=== PATIENT | female | born 1940 | race Caucasian/White ===

== ENCOUNTER 2016-03-12 11:59 | Outpatient (CLI) | payer MEDICARE | END 2016-03-12 12:00 | disposition home or self-care (01) | DX: J44.9 Chronic obstructive pulmonary disease, unspecified (principal) ==

== ENCOUNTER 2016-04-01 09:14 | Outpatient (CLI) | payer MEDICARE ==
[2016-04-01] MEDS ORDERED: ALBUTEROL NEB 2.5 MG/3 ML INH ONE (09:40)
== END 2016-04-01 09:15 | disposition home or self-care (01) ==
DX: R06.00 Dyspnea, unspecified (principal)
CPT/HCPCS: 94060; 94664; J7613

== ENCOUNTER 2016-04-20 12:15 | Outpatient (CLI) | payer MEDICARE | END 2016-04-20 12:16 | disposition home or self-care (01) | DX: R10.9 Unspecified abdominal pain (principal) ==

== ENCOUNTER 2017-06-17 15:49 | Outpatient (CLI) | payer MEDICARE ==
--- NOTE | 2017-06-18 13:53 | Mammography Report ---
DIGITAL SCREENING MAMMOGRAM: 06/17/2017 INDICATION: A 76-year-old for screening. COMPARISON: 10/2015, 09/2013, 11/2011, 03/2010, 03/2009. TECHNIQUE: Routine CC and MLO projections were obtained of the breasts. FINDINGS: The breasts demonstrate fatty replacement bilaterally. Punctate, typically benign calcifications are present. No suspicious masses, clustered microcalcifications, or regions of architectural distortion are identified. IMPRESSION: BENIGN FINDINGS. RECOMMENDATION: Routine annual screening unless otherwise clinically indicated. BIRADS CATEGORY 2 BENIGN FINDINGS. STANDARD QUALIFYING STATEMENTS: 1. This examination was reviewed with the aid of Computer-Aided Detection (CAD). 2. A negative or benign imaging report should not delay biopsy if clinically suspicious findings are present. Consider surgical consultation if warranted. More than 5% of cancers are not identified by imaging. 3. Dense breasts may obscure an underlying neoplasm. TD: 06/18/2017 13:52
== END 2017-06-17 15:50 | disposition home or self-care (01) ==
LOC: DI 15:49
PROVIDERS: ATTEND Internal Medicine
DX: Z12.31 Encounter for screening mammogram for malignant neoplasm of breast (principal)
CPT/HCPCS: 77067

== ENCOUNTER 2017-07-05 12:12 | Outpatient (CLI) | payer MEDICARE ==
--- NOTE | 2017-07-05 13:06 | XRAY Report ---
TWO VIEW CHEST: 07/05/2017 CLINICAL INDICATION: Dyspnea. COMPARISON: 03/12/2016 FINDINGS: Frontal and lateral views of the chest demonstrate a normal cardiac silhouette. The lungs remain hyperinflated, compatible with COPD. No focal consolidation, effusion, or pneumothorax is present. IMPRESSION: STABLE HYPERINFLATION. NO EVIDENCE OF ACUTE CARDIOPULMONARY DISEASE. TD: 07/05/2017 13:05
== END 2017-07-05 12:13 | disposition home or self-care (01) ==
LOC: DI 12:12
PROVIDERS: ATTEND Internal Medicine
DX: R91.8 Other nonspecific abnormal finding of lung field (principal)
CPT/HCPCS: 71046

== ENCOUNTER 2017-08-11 09:30 | Emergency (ER) | payer MEDICARE ==
[2017-08-11 12:34] VITALS: BP 187/54
[2017-08-11 12:44] LABS: BASOPHILS % (AUTO) 0.2 %; EOSINOPHILS % (AUTO) 0.1 %; HGB - HEMOGLOBIN 12.5 g/dL (12.0-16.0); LYMPHOCYTES % (AUTO) 10.2 %; MEAN CORPUSCULAR HEMOGLOBIN 30.2 pg (27.0-31.0); MEAN CORPUSCULAR HGB CONC 33.5 g/dL (32.0-36.0); MEAN PLATELET VOLUME 7.9 fL (7.9-10.8); MONOCYTES # (AUTO) 0.4 10^3/uL (0.0-1.0); MONOCYTES % (AUTO) 3.9 %; NEUTROPHILS % (AUTO) 85.6 %; PLT - PLATELET COUNT 220 10^3/uL (130-450); RED BLOOD COUNT 4.13 10^6/uL (4.20-5.40); RED CELL DISTRIBUTION WIDTH 14.1 % (12.0-15.0); WHITE BLOOD COUNT 9.4 x10^3/uL (4.8-10.8)
[2017-08-11 12:57] LABS: ALBUMIN 4.4 g/dL (3.2-5.5); ALBUMIN/GLOBULIN RATIO 1.1 (1.0-2.2); BILIRUBIN,TOTAL 0.6 mg/dL (0.2-1.0); CALCIUM 9.6 mg/dL (8.5-10.3); CREATININE 1.2 mg/dL (0.4-1.0); MAGNESIUM 1.8 mg/dL (1.7-2.8); TOTAL PROTEIN 8.3 g/dL (6.7-8.2)
[2017-08-11] MEDS ORDERED: DEXAMETHASONE 10 MG/ML VIAL PO STA (13:22)
--- NOTE | 2017-08-11 13:24 | ED Physician Documentation ---
PD HPI DYSPNEA - Stated complaint Stated Complaint: PANICK ATTACK - Chief complaint Chief Complaint: General - History obtained from History obtained from: Patient - History of Present Illness Timing - onset: How many days ago (has had several days of intermittent dyspnea. One epsidoe few days ago felt like she was going to faint. However most of them are feeling short of breath. Not exertional based. Feels tight in chest with it. Has had dx of COPD and has budesonide inhaler. Albuterol MDI for "rescue" but was not trying it for these. No chest pain with it. No dx of ACS/ CHF in the past.) Timing - onset during: Rest, Light activity Timing - duration: Hours Timing - details: Intermittant Inciting event(s): No: URI, Exercise, Exposure (ie smoke), Immobilization/travel Improved by: Rest Worsened by: No: Laying flat Associated symptoms: Wheezing, Anxiety. No: Fever, Cough, Chest pain / discomfort, Palpitations, Bilateral edema Similar symptoms before: Has not had sx before Recently seen: Clinic (Dx with possible COPD) Review of Systems Ten Systems: 10 systems reviewed and negative Constitutional: denies: Fever, Chills, Myalgias Nose: denies: Rhinorrhea / runny nose, Congestion Throat: denies: Sore throat Cardiac: denies: Chest pain / pressure, Palpitations, Pedal edema, Calf pain Respiratory: reports: Dyspnea. denies: Cough, Hemoptysis GI: denies: Abdominal Pain, Nausea, Vomiting : denies: Dysuria, Frequency Skin: denies: Rash, Lesions Musculoskeletal: denies: Extremity swelling Neurologic: reports: Generalized weakness, Near syncope (one episode). 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 HEENT: Cataracts - Present Medications Home Medications: Ambulatory Orders Medication Instructions Recorded Confirmed Lisinopril 10 mg PO DAILY 10/20/13 10/30/15 Multivitamin [Multi Vitamin Daily] 1 tab ORAL DAILY 10/20/13 10/30/15 [place]-3 Fatty Acids [Fish Oil] 500 mg ORAL DAILY 10/20/13 10/30/15 Pravastatin Sodium 40 mg PO DAILY 10/20/13 10/30/15 Clopidogrel [Plavix] 75 mg PO DAILY 10/15/15 10/30/15 amLODIPine [Norvasc] 5 mg PO DAILY 10/15/15 10/30/15 Dexamethasone [Decadron] 4 mg PO DAILY #5 tablet 08/11/17 - Allergies Allergies/Adverse Reactions: Allergies Allergy/AdvReac Type Severity Reaction Status Date / Time No Known Drug Allergies Allergy Verified 10/30/15 09:31 - Social History Does the pt smoke?: No Smoking Status: Never smoker Does the pt drink ETOH?: No Does the pt have substance abuse?: No - Family History Family history: reports: Non contributory - Immunizations Immunizations are current?: Yes - POLST Patient has POLST: No PD ED PE NORMAL - Vitals Vital signs reviewed: Yes - General General: Alert and oriented X 3, No acute distress, Well developed/nourished - HEENT HEENT: Pharynx benign - Neck Neck: Supple, no meningeal sign, No adenopathy, No JVD - Cardiac Cardiac: RRR, No murmur - Respiratory Respiratory: No respiratory distress, Clear bilaterally - Abdomen Abdomen: Soft, Non tender - Back Back: No CVA TTP - Derm Derm: Normal color, Warm and dry - Extremities Extremities: No deformity, No tenderness to palpate, Normal ROM s pain, No edema , No calf tenderness / cord - Neuro Neuro: Alert and oriented X 3, No motor deficit, Normal speech Results - Vitals Vitals: Oxygen O2 Source Room air - EKG (time done) 10:01 Rate: Rate (enter#) (96) Rhythm: NSR [place]: Normal Intervals: Normal LA QRS: Normal Ischemia: Normal ST segments, Non specific changes (laterally). No: ST elevation c/w ischemia, ST depression - Labs Labs: Laboratory Tests 08/11/17 08/11/17 08/11/17 12:35 12:35 12:35 WBC 9.4 RBC 4.13 L Hgb 12.5 Hct 37.1 MCV 90.0 MCH 30.2 MCHC 33.5 RDW 14.1 Plt Count 220 MPV 7.9 Neut # (Auto) 8.0 H Lymph # (Auto) 1.0 L [place] # (Auto) 0.4 Eos # (Auto) 0.0 Baso # (Auto) 0.0 Absolute Nucleated RBC 0.00 Nucleated RBC % 0.0 Sodium 133 L Potassium 4.5 Chloride 101 Carbon Dioxide 22 Anion Gap 10.0 BUN 25 H Creatinine 1.2 H Estimated GFR (MDRD) 44 L Glucose 109 H Calcium 9.6 Magnesium 1.8 Total Bilirubin 0.6 AST 25 ALT 19 Alkaline Phosphatase 54 Troponin I < 0.04 B-Natriuretic Peptide Total Protein 8.3 H Albumin 4.4 Globulin 3.9 Albumin/Globulin Ratio 1.1 Lipase 40 TSH 08/11/17 08/11/17 12:35 12:35 WBC RBC Hgb Hct MCV MCH MCHC RDW Plt Count MPV Neut # (Auto) Lymph # (Auto) [place] # (Auto) Eos # (Auto) Baso # (Auto) Absolute Nucleated RBC Nucleated RBC % Sodium Potassium Chloride Carbon Dioxide Anion Gap BUN Creatinine Estimated GFR (MDRD) Glucose Calcium Magnesium Total Bilirubin AST ALT Alkaline Phosphatase Troponin I B-Natriuretic Peptide 44 Total Protein Albumin Globulin Albumin/Globulin Ratio Lipase TSH 1.51 PD MEDICAL DECISION MAKING - ED course Complexity details: considered differential (basic labs are good. Does not sound cardiac. Will add steroids and Albuterol as presume is some COPD. ), d/w patient - Sepsis Event Vital Signs: Oxygen O2 Source Room air Departure - Departure Disposition: 01 Home, Self Care Clinical Impression: Dyspnea Qualifiers: Dyspnea type: shortness of breath Qualified Code(s): R06.02 - Shortness of breath Condition: Stable Record reviewed to determine appropriate education?: Yes Instructions: ED Dyspnea Shortness of Breath Follow-Up: Caitlin Parks MD [Primary Care Provider] - Prescriptions: Dexamethasone [Decadron] 4 mg PO DAILY #5 tablet Comments: Your blood tests are good here without any anemia, low electrolyte disturbance, nor signs of heart injury or heart failure. Your heart rhythm is regular at this time. Considerations for your symptoms could be episodic flaring of the COPD and so you can continue to try the albuterol periodically if you do have recurrent symptoms. There may be some inflammation component and so I would try some steroid orally for the next 5 days. This would be similar to the budesonide nebulizer that you take but would have a little more effect in the short-term. Other considerations would be heart rhythm abnormality. If you continue to have episodes, then see your primary care for possible Holter monitor type testing. Discharge Date/Time: 08/11/17 13:33
== END 2017-08-11 13:33 | disposition home or self-care (01) ==
LOC: ED 09:30
DX: R06.02 Shortness of breath (principal); R94.31 Abnormal electrocardiogram [ECG] [EKG]; J43.9 Emphysema, unspecified; I10 Essential (primary) hypertension; I73.9 Peripheral vascular disease, unspecified
CPT/HCPCS: 36415; 80053; 83690; 83735; 83880; 84443; 84484; 85025; 93005; 99283

== ENCOUNTER 2017-09-23 23:40 | Outpatient (CLI) | payer MEDICARE | END 2017-09-23 23:41 | disposition home or self-care (01) | LOC: LAB.R 23:40 | PROVIDERS: ATTEND Internal Medicine | DX: J02.9 Acute pharyngitis, unspecified (principal) | CPT/HCPCS: 87070; 87430 ==

== ENCOUNTER 2018-05-23 11:48 | Outpatient (CLI) | payer MEDICARE ==
[2018-05-23 12:05] LABS: BASOPHILS # (AUTO) 0.1 10^3/uL (0.0-0.1); BASOPHILS % (AUTO) 0.8 %; EOSINOPHILS # (AUTO) 0.1 10^3/uL (0.0-0.7); EOSINOPHILS % (AUTO) 1.2 %; LYMPHOCYTES # (AUTO) 1.7 10^3/uL (1.5-3.5); LYMPHOCYTES % (AUTO) 19.7 %; MEAN CORPUSCULAR HEMOGLOBIN 30.7 pg (27.0-31.0); MEAN CORPUSCULAR HGB CONC 33.3 g/dL (32.0-36.0); MEAN CORPUSCULAR VOLUME 92.3 fL (81.0-99.0); MEAN PLATELET VOLUME 8.1 fL (7.9-10.8); MONOCYTES # (AUTO) 0.5 10^3/uL (0.0-1.0); NEUTROPHILS # (AUTO) 6.2 10^3/uL (1.5-6.6); NEUTROPHILS % (AUTO) 72.3 %; PLT - PLATELET COUNT 245 10^3/uL (130-450); RED BLOOD COUNT 3.91 10^6/uL (4.20-5.40); RED CELL DISTRIBUTION WIDTH 13.6 % (12.0-15.0); WHITE BLOOD COUNT 8.5 x10^3/uL (4.8-10.8)
[2018-05-23 12:18] LABS: ALBUMIN 4.4 g/dL (3.2-5.5); ALBUMIN/GLOBULIN RATIO 1.2 (1.0-2.2); BILIRUBIN,TOTAL 0.8 mg/dL (0.2-1.0); CALCIUM 9.6 mg/dL (8.5-10.3); CREATININE 1.5 mg/dL (0.4-1.0); TOTAL PROTEIN 8.1 g/dL (6.7-8.2)
== END 2018-05-23 11:49 | disposition home or self-care (01) ==
LOC: LAB 11:48
PROVIDERS: ATTEND Surgery Vascular Surgery
DX: I77.1 Stricture of artery (principal)
CPT/HCPCS: 36415; 80053; 85025

== ENCOUNTER 2018-09-22 08:08 | Inpatient (IN) | payer MEDICARE ==
[2018-09-22] MEDS ORDERED: SODIUM CHLORIDE 0.9% 1,000 ML IV ONE (08:39)
[2018-09-22] MEDS ORDERED: ONDANSETRON 4 MG/2 ML VIAL IVP STA (08:40)
--- NOTE | 2018-09-22 08:44 | ED Physician Documentation ---
History of Present Illness - Stated complaint Stated Complaint: NAUSEA/DIZZY/WEAK - History obtained from History obtained from: Patient - History of Present Illness Timing: How many days ago (5) - Additonal information Additional information: The patient is a 78-year-old female with history of hypertension and COPD, who presents with nausea and dizziness that started 5 days ago after addition of do xazosin to her other medications, which include lisinopril, amlodipine, and hydrochlorothiazide. Her blood pressure had been elevated up to 205 systolic prompting the addition of doxazosin. She reports nausea and dizziness with standing since starting the medication. She denies vomiting or chest pain. She feels generally weak, reports decreased appetite, and reports no change in her chronic shortness of breath from COPD. Review of Systems Constitutional: reports: Other ("Dizziness," when standing.). denies: Fever Eyes: denies: Decreased vision Ears: denies: Tinnitus/ringing Nose: denies: Congestion Throat: denies: Sore throat Cardiac: denies: Chest pain / pressure Respiratory: reports: Dyspnea (Chronically, with no recent change.). denies: Cough GI: reports: Nausea. denies: Abdominal Pain, Vomiting : denies: Dysuria Skin: denies: Lesions Musculoskeletal: denies: Back pain, Extremity pain Neurologic: reports: Generalized weakness. 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 HEENT: Cataracts - Present Medications Home Medications: Ambulatory Orders Medication Instructions Recorded Confirmed Lisinopril 10 mg PO DAILY 10/20/13 10/30/15 Multivitamin [Multi Vitamin Daily] 1 tab ORAL DAILY 10/20/13 10/30/15 [place]-3 Fatty Acids [Fish Oil] 500 mg ORAL DAILY 10/20/13 10/30/15 Pravastatin Sodium 40 mg PO DAILY 10/20/13 10/30/15 Clopidogrel [Plavix] 75 mg PO DAILY 10/15/15 10/30/15 amLODIPine [Norvasc] 5 mg PO DAILY 10/15/15 10/30/15 dexAMETHasone [Decadron] 4 mg PO DAILY #5 tablet 08/11/17 - Allergies Allergies/Adverse Reactions: Allergies Allergy/AdvReac Type Severity Reaction Status Date / Time No Known Drug Allergies Allergy Verified 10/30/15 09:31 - Living Situation Living Situation: reports: With spouse/s.o. - Social History Does the pt smoke?: No Smoking Status: Never smoker Does the pt drink ETOH?: No Does the pt have substance abuse?: No - Immunizations Immunizations are current?: Yes - POLST Patient has POLST: No PD ED PE NORMAL - Vitals Vital signs reviewed: Yes (Hypertensive) - General General: Alert and oriented X 3, Well developed/nourished - HEENT HEENT: Atraumatic, Moist mucous membranes - Neck Neck: No JVD - Cardiac Cardiac: RRR - Respiratory Respiratory: No respiratory distress, Clear bilaterally - Abdomen Abdomen: Soft, Non tender - Back Back: No CVA TTP - Derm Derm: No rash - Extremities Extremities: No edema, No calf tenderness / cord - Neuro Neuro: Alert and oriented X 3, No motor deficit, No sensory deficit, Normal speech Results - Vitals Vitals: Vital Signs - 24 hr 09/22/18 09/22/18 08:26 08:48 Temperature 36.6 C Heart Rate 88 81 Respiratory 18 15 Rate Blood Pressure 160/69 H 165/56 H O2 Saturation 98 97 Oxygen O2 Source Room air - EKG (time done) 08:32 Rate: Rate (enter#) (87) Rhythm: NSR, LAE [place]: Normal Intervals: Normal [place] Ischemia: ST depression (diffusely) Compare to prior EKG: Unchanged from prior EKG Computer interpretation: Agree with computer - Labs Labs: Laboratory Tests 09/22/18 09/22/18 09/22/18 08:50 08:50 08:50 WBC 7.5 RBC 3.52 L Hgb 10.8 L Hct 30.5 L MCV 86.6 MCH 30.7 MCHC 35.4 RDW 11.7 L Plt Count 228 MPV 9.2 Neut # (Auto) 6.2 Lymph # (Auto) 0.8 L [place] # (Auto) 0.4 Eos # (Auto) 0.1 Baso # (Auto) 0.0 Absolute Nucleated RBC 0.00 Nucleated RBC % 0.0 Sodium 118 L* Potassium 4.2 Chloride 84 L Carbon Dioxide 20 L Anion Gap 14.0 H BUN 20 Creatinine 1.4 H Estimated GFR (MDRD) 36 L Glucose 124 H Calcium 9.1 Magnesium 1.5 L Total Bilirubin 0.8 AST 21 ALT 16 Alkaline Phosphatase 51 Troponin I < 0.04 Troponin I High Sens 10.0 Total Protein 7.2 Albumin 3.9 Globulin 3.3 Albumin/Globulin Ratio 1.2 Lipase 82 H PD MEDICAL DECISION MAKING - ED course Complexity details: reviewed old records, reviewed results, re-evaluated patient, considered differential, d/w patient, d/w family, d/w senior treasury consultant ED course: The patient's presentation is consistent with acute profound hyponatremia, with a sodium of 118. Having started doxazosin 5 days ago, the hyponatremia is likely associated with new antihypertensive therapy in addition to her previously prescribed antihypertensive medication. She purposely avoids added salt in her diet. Treatment in the emergency department included administration of normal saline IV, and Zofran 4 mg IV. I discussed her condition with Dr. Kwong, who accepts her for further evaluation and treatment. Departure - Departure Disposition: [facility] DC/Xfer Clinical Impression: Acute hyponatremia Hypertension Qualifiers: Hypertension type: unspecified secondary hypertension Qualified Code(s): I15.9 - Secondary hypertension, unspecified; I15 - Secondary hypertension Condition: Stable
[2018-09-22 08:58] LABS: BASOPHILS % (AUTO) 0.3 %; EOSINOPHILS # (AUTO) 0.1 10^3/uL (0.0-0.7); EOSINOPHILS % (AUTO) 0.7 %; HGB - HEMOGLOBIN 10.8 g/dL (12.0-16.0); LYMPHOCYTES # (AUTO) 0.8 10^3/uL (1.5-3.5); LYMPHOCYTES % (AUTO) 10.7 %; MEAN CORPUSCULAR HEMOGLOBIN 30.7 pg (27.0-31.0); MEAN CORPUSCULAR HGB CONC 35.4 g/dL (32.0-36.0); MEAN CORPUSCULAR VOLUME 86.6 fL (81.0-99.0); MEAN PLATELET VOLUME 9.2 fL (7.9-10.8); MONOCYTES # (AUTO) 0.4 10^3/uL (0.0-1.0); MONOCYTES % (AUTO) 5.6 %; NEUTROPHILS # (AUTO) 6.2 10^3/uL (1.5-6.6); NEUTROPHILS % (AUTO) 82.4 %; PLT - PLATELET COUNT 228 10^3/uL (130-450); RED BLOOD COUNT 3.52 10^6/uL (4.20-5.40); RED CELL DISTRIBUTION WIDTH 11.7 % (12.0-15.0); WHITE BLOOD COUNT 7.5 x10^3/uL (4.8-10.8)
[2018-09-22 09:14] LABS: TROPONIN I < 0.04 ng/mL (<0.49)
[2018-09-22 09:20] LABS: ALBUMIN 3.9 g/dL (3.2-5.5); ALBUMIN/GLOBULIN RATIO 1.2 (1.0-2.2); BILIRUBIN,TOTAL 0.8 mg/dL (0.2-1.0); CALCIUM 9.1 mg/dL (8.5-10.3); CREATININE 1.4 mg/dL (0.4-1.0); MAGNESIUM 1.5 mg/dL (1.7-2.8); TOTAL PROTEIN 7.2 g/dL (6.7-8.2)
[2018-09-22] MEDS ORDERED: SODIUM CHLORIDE FLUSH 0.9% 10 ML SYRINGE IVP PRN (09:53)
--- NOTE | 2018-09-22 09:55 | HISTORY & PHYSICAL EXAMINATION ---
Chief Complaint - Chief Complaint Chief Complaint: nausea, dizziness, weakness History of Present Illness - Admitted From Admitted From:: ED - History Obtained From Records Reviewed: yes History obtained from: chart review, patient Exam Limitations: none - History of Present Illness HPI Comment/Other: Marcia Aguilar is a 78-year old female with a past medical history of hypertension, hyperlipidemia, PVD, COPD emphysema, GERD, nocturia, and eczema. She arrived in the ED via private car with complaints of nausea, weakness, and dizziness that started 5-6 days ago after addition of doxazosin to her other medications, which include lisinopril, amlodipine, and hydrochlorothiazide. She reported that her blood pressure while in the clinic had been elevated up to 250 systolic prompting the addition of doxazosin by her PCP. She reported that she "just felt lousy" ever since starting her new medication, has gained weight gradually (estimated 0.5 lbs per day), had no appetite, was nauseated, dizzy with standing, and had noticed her nocturia had become worse in which she has been getting up 4-5 times per night to urinate. On her initial exam, she denied vomiting, diarrhea, headaches, sore throat, recent illness, a new rash, shortness of breath, or chest pain. Labs showed a normal WBC count, H/H of 10.8/30.5, platelets 228, sodium 118, potassium of 4.2, chloride 84, anion gap 14.0, creatinine 1.4, BUN 20, GFR 36, glucose 124, magnesium 1.5, normal troponin of 0.04, lipase 82 with no other lab abnormalities. A urine sodium was 41, a urine chloride was 58, and a urinalysis shows no acute infection. She is alert and oriented x4, a good historian, and is agreeable to at least a 2 midnight inpatient stay in the hospital. 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 Father: CAD. 2 brothers: Alive and well with heart disease. 1 sister: Alive and well with no known diseases Living arrangement: At home Living Situation: With spouse/s.o. 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 They have 3 grown children. The patient lives a sedentary life style including watching TV and playing on the internet. She tries to ride a stationary bike for exercise. She denies alcohol or illicit drug use. She has a tobacco smoking history from age [age], but no longer smokes. She wishes to be a DNR. - Substance History Use: Uses substance without health or social issues: NONE Abuse: Recurrent use of substance despite neg consequences: NONE Dependence: Experiences withdrawal or developed tolerances: NONE - POLST Patient has POLST: No POLST Status: DNR Meds/Allgy - Home Medications Home Medications: Ambulatory Orders Medication Instructions Recorded Confirmed Lisinopril 40 mg PO BID 10/20/13 09/22/18 Multivitamin [Multi Vitamin Daily] 1 tab ORAL DAILY 10/20/13 09/22/18 [place]-3 Fatty Acids [Fish Oil] 1,000 mg PO DAILY 10/20/13 09/22/18 Pravastatin Sodium 40 mg PO QPM 10/20/13 09/22/18 Clopidogrel [Plavix] 75 mg PO DAILY 10/15/15 09/22/18 amLODIPine [Norvasc] 10 mg PO DAILY 10/15/15 09/22/18 Budesonide 1 puffs INH BID 09/22/18 09/22/18 Doxazosin [Cardura] 2 mg PO QPM 09/22/18 09/22/18 hydroCHLOROthiazide 25 mg PO DAILY 09/22/18 09/22/18 [Hydrochlorothiazide] - Allergies Allergies/Adverse Reactions: Allergies Allergy/AdvReac Type Severity Reaction Status Date / Time No Known Drug Allergies Allergy Verified 10/30/15 09:31 Review of Systems - Constitutional Constitutional: reports: Fatigue, Weakness, Poor appetite, Weight gain - Eyes Eyes: reports: Vision loss, Corrective lenses - Cardiovascular Cariovascular: reports: Lightheadedness, Decr. exercise tolerance - Respiratory Respiratory: reports: Cough, SOB with exertion - Gastrointestinal Gastrointestinal: reports: Reflux/heartburn, Bloating, Poor appetite - Genitourinary Genitourinary: reports: Dysuria, Frequency, Urgency, Nocturia - Musculoskeletal Musculoskeletal: reports: Stiffness - Integumentary Integumentary: reports: Dryness - Neurological Neurological: reports: General weakness, Dizziness, Memory problems, Pre- existing deficit - Psychiatric Psychiatric: reports: Depression - All Other Systems All Other Systems: reports: Reviewed and negative Prior Level of Functionality: Independent, drives a car when she is well, no recent falls, no use of a cane or a walker at home. Exam - Vital Signs Reviewed Vital Signs: Yes Vital Signs: Vital Signs x48h Temp Pulse Resp BP Pulse Ox 09/22/18 09:30 86 18 155/62 H 97 09/22/18 09:00 79 18 165/56 H 99 09/22/18 08:48 81 15 165/56 H 97 09/22/18 08:26 36.6 C 88 18 160/69 H 98 - Physical Exam General Appearance: positive: No acute distress, Alert Eyes Bilateral: positive: PERRL ENT: positive: Pharynx nml, Dry mucous membranes Neck: positive: Thyroid nml, No JVD, Trachea midline Respiratory: positive: Chest non-tender, No respiratory distress, Breath sounds nml Cardiovascular: positive: Regular rate & rhythm, No gallop, Tachycardia, Systolic murmur Peripheral Pulses: positive: 2+ Abdomen: positive: Non-tender, No organomegaly, Nml bowel sounds, No distention Back: positive: Nml inspection Skin: positive: Color nml, No rash, Warm, Dry Extremities: positive: Non-tender, Full ROM, Nml appearance, No pedal edema Neurologic/Psychiatric: positive: Oriented x3, CN's nml (2-12), Motor nml, Sensation nml, Mood/affect nml Reflexes: Bicep (R): 3+, Bicep (L): 3+ Conclusion/Plan - Problem List (1) Acute hyponatremia Conclusion/Plan: - Admitting serum sodium was 118 (gradual, severe) - No changes in mental status, seizures, or other worrisome physical exam findings indicating acute, severe electrolyte imbalance - For the past 6 days, patient complained of; weakness, dizziness, loss of appetite, weight gain, and nausea - Urine sodium is 42 - Recent medication changes of adding doxazosin, in addition to remaining on f ull dose JUANCHO, hydrochlorothiazide - Likely diuretic induced hyponatremia Plan: Continue gentle replacement, hold all B/P meds, treat with BB if needed (2) Hypertension Conclusion/Plan: - Patient reported systolic B/P readings ~250 at her most recent clinic visit - Longstanding HTN, with CAD - At one time was seeing a manager merchandising for her CAD, denies MO or CVA- prescribed Plavix at home per cardiology - Faint systolic heart murmur appreciated on exam in the mitral region Plan: Obtain a bedside echocardiogram, hold all home meds, treat HTN with BB if needed Qualifiers: Hypertension type: essential hypertension Qualified Code(s): I10 - Essential (primary) hypertension (3) Asthma with COPD (chronic obstructive pulmonary disease) Conclusion/Plan: - Patient admits to smoking from age [age] and had underlying asthma - Takes budesinide at home (preliminary list) Plan: Budesinide INH, duo-nebs as needed (4) Tobacco dependence in remission Conclusion/Plan: - Admits to tobacco use, no recent use (5) CAD (coronary artery disease) Conclusion/Plan: - Takes Pravastatin at home Plan: Continue while here as it is not a culprit in this primary problem of hyponatremia (6) Nocturia Conclusion/Plan: - Patient reports at least 3-4 times per night of nocturia that has become worse in the past few months since having more problems with her B/P - HCTZ at home, now on hold Plan: Offer purewick for comfort while inpatient, minimize diuretics, check UA (7) History of irregular heartbeat Conclusion/Plan: - Per patient report, denies a history of atrial fibrillation Plan: Await echo results (8) Hyperlipidemia Conclusion/Plan: - Takes Pravastatin at home - Lab Results Lab results reviewed: Yes Teo Bones: 09/23/18 04:45 09/23/18 04:45 Core Measures - Anticipated LOS I expect patient to be DC'd or transferred within 96 hours.: Yes - DVT/VTE - Prophylaxis VTE/DVT Device ordered at admit?: Yes VTE/DVT Prophylaxis med ordered at admit?: No Not Ordered - Medical Reason: Contraindicated - Stroke - Rehab Assessment Rehab services assessment to be ordered?: No Not Ordered - Medical Reason: Contraindicated - AMI - Statin at Admit Aspirin Prescribed on Admit: No Not Ordered - Medical Reason: Contraindicated
[2018-09-22] MEDS ORDERED: ENOXAPARIN 40 MG/0.4 ML SYRINGE SUBQ SCH (10:00)
[2018-09-22] MEDS: MAGNESIUM OXIDE 400 MG TABLET PO SCH ×2 (12:10→17:25)
[2018-09-22] MEDS: SODIUM CHLORIDE 0.9% 1,000 ML IV SCH ×2 (12:12→21:32)
[2018-09-22 14:14] LABS: BILIRUBIN,URINE NEGATIVE (NEGATIVE); GLUCOSE, URINE (UA) NEGATIVE (NEGATIVE); KETONES,URINE (UA) NEGATIVE (NEGATIVE); LEUKOCYTE ESTERASE, URINE NEGATIVE (NEGATIVE); NITRITE,URINE NEGATIVE (NEGATIVE); OCCULT BLOOD,URINE NEGATIVE (NEGATIVE); PROTEIN,URINE NEGATIVE (NEGATIVE); UROBILINOGEN,URINE 0.2 (NORMAL) E.U./dL (NORMAL)
[2018-09-22 14:26] LABS: BACTERIA,URINE Rare /HPF (None Seen); CASTS, URINE 0-2 Hyaline Casts /LPF; CLARITY,URINE CLEAR (CLEAR); RBC,URINE None Seen /HPF (0-5); SQUAMOUS EPITHELIAL CELL,UR NONE SEEN (<= Few)
[2018-09-22] MEDS: SODIUM CHLORIDE FLUSH 0.9% 10 ML SYRINGE IVP SCH ×2 (17:25→23:48)
[2018-09-22 17:57] LABS: HB2 TOTAL 11.3 g/dL; HEMOGLOBIN A1C 0.46 g/dL; HEMOGLOBIN A1C % 5.9 % (4.6-6.2)
[2018-09-22 18:12] LABS: CALCIUM 8.4 mg/dL (8.5-10.3); CREATININE 1.5 mg/dL (0.4-1.0)
[2018-09-22] MEDS: BUDESONIDE 0.5 MG/2 ML NEB INH SCH (19:37)
[2018-09-23 00:28] LABS: CALCIUM 8.2 mg/dL (8.5-10.3); CREATININE 1.5 mg/dL (0.4-1.0)
[2018-09-23] MEDS: ALBUTEROL NEB 2.5 MG/3 ML INH PRN ×6 (04:52→22:14)
[2018-09-23 04:55] LABS: BASOPHILS % (AUTO) 0.4 %; EOSINOPHILS # (AUTO) 0.1 10^3/uL (0.0-0.7); EOSINOPHILS % (AUTO) 1.2 %; HGB - HEMOGLOBIN 9.4 g/dL (12.0-16.0); LYMPHOCYTES # (AUTO) 1.4 10^3/uL (1.5-3.5); LYMPHOCYTES % (AUTO) 20.1 %; MEAN CORPUSCULAR HEMOGLOBIN 30.1 pg (27.0-31.0); MEAN CORPUSCULAR HGB CONC 33.9 g/dL (32.0-36.0); MEAN CORPUSCULAR VOLUME 88.8 fL (81.0-99.0); MEAN PLATELET VOLUME 9.4 fL (7.9-10.8); MONOCYTES # (AUTO) 0.5 10^3/uL (0.0-1.0); MONOCYTES % (AUTO) 7.9 %; NEUTROPHILS # (AUTO) 4.8 10^3/uL (1.5-6.6); NEUTROPHILS % (AUTO) 70.1 %; PLT - PLATELET COUNT 209 10^3/uL (130-450); RED BLOOD COUNT 3.12 10^6/uL (4.20-5.40); RED CELL DISTRIBUTION WIDTH 11.9 % (12.0-15.0); WHITE BLOOD COUNT 6.9 x10^3/uL (4.8-10.8)
[2018-09-23 05:06] LABS: ALBUMIN 3.3 g/dL (3.2-5.5); ALBUMIN/GLOBULIN RATIO 1.1 (1.0-2.2); BILIRUBIN,TOTAL 0.5 mg/dL (0.2-1.0); CALCIUM 8.4 mg/dL (8.5-10.3); CREATININE 1.3 mg/dL (0.4-1.0); MAGNESIUM 1.7 mg/dL (1.7-2.8); TOTAL PROTEIN 6.2 g/dL (6.7-8.2)
[2018-09-23] MEDS: SODIUM CHLORIDE 0.9% 1,000 ML IV SCH ×2 (07:12→21:22)
[2018-09-23] MEDS: CLOPIDOGREL 75 MG TABLET PO SCH (08:52)
[2018-09-23] MEDS: MAGNESIUM OXIDE 400 MG TABLET PO SCH ×2 (08:52→16:33)
[2018-09-23] MEDS: SODIUM CHLORIDE FLUSH 0.9% 10 ML SYRINGE IVP SCH ×3 (08:52→23:38)
[2018-09-23] MEDS: BUDESONIDE 0.5 MG/2 ML NEB INH SCH ×2 (09:04→18:14)
[2018-09-23] MEDS: POLYETHYLENE GLYCOL 3350 17 GM PACKET PO SCH (09:45)
--- NOTE | 2018-09-23 11:37 | PROVIDER PROGRESS NOTE ---
Subjective - Prog Note Date Prog Note Date: 09/23/18 Prog Note Time: 11:35 - Subjective Pt reports feeling: Improved Subjective: Pat states that she feels much improved since admission with more energy, and improved appetite. She denies chest pain, nausea, vomiting, a rash, dizziness, or a new cough. Current Medications - Current Medications Current Medications: Active Medications: Albuterol 2.5 mg INH RTQ4H PRN Budesonide (Pulmicort) 0.5 mg INH RTBID TRAVIS Clopidogrel Bisulfate (Plavix) 75 mg PO DAILY TRAVIS Sodium Chloride (Normal Saline 0.9%) 1,000 mls @ 100 mls/hr IV .Q10H TRAVIS Magnesium Oxide (Mag Ox) 400 mg PO BIDWM TRAVIS Polyethylene Glycol (Miralax) 17 gm PO DAILY [facility] HOME meds: Lisinopril 40 mg PO BID 10/20/13 Multivitamin [Multi Vitamin Daily] 1 tab ORAL DAILY 10/20/13 [place]-3 Fatty Acids [Fish Oil] 1,000 mg PO DAILY 10/20/13 Pravastatin Sodium 40 mg PO QPM 10/20/13 Clopidogrel [Plavix] 75 mg PO DAILY 10/15/15 amLODIPine [Norvasc] 10 mg PO DAILY 10/15/15 Budesonide 1 puffs INH BID 09/22/18 Doxazosin [Cardura] 2 mg PO QPM 09/22/18 hydroCHLOROthiazide [Hydrochlorothiazide] 25 mg PO DAILY 09/22/18 Objective - Vital Signs/Intake & Output Reviewed Vital Signs: Yes Vital Signs: Vital Signs x48h Temp Pulse Pulse Resp BP Pulse Ox 09/23/18 09:04 79 16 09/23/18 08:25 36.5 C 77 16 140/48 H 96 09/23/18 04:53 79 16 09/23/18 04:43 36.7 C 97 20 141/60 H 93 Intake & Output: Intake & Output 09/20/18 09/21/18 09/22/18 09/23/18 23:59 23:59 23:59 23:59 Intake Total 3043.333 1326.667 Output Total 550 1000 Balance 2493.333 326.667 - Objective General Appearance: positive: No acute distress, Alert Eyes Bilateral: positive: PERRL ENT: positive: Pharynx nml, No signs of dehydration Neck: positive: Thyroid nml, No JVD, Trachea midline Respiratory: positive: Chest non-tender, No respiratory distress Cardiovascular: positive: Regular rate & rhythm, No gallop, Systolic murmur Peripheral Pulses: 1+ Radial (R), 1+ Radial (L) Abdomen: positive: Non-tender, Nml bowel sounds Back: positive: Nml inspection Skin: positive: Color nml, No rash, Warm, Dry Extremities: positive: Non-tender, Full ROM, Nml appearance, No pedal edema Neurologic/Psychiatric: positive: Oriented x3, CN's nml (2-12), Motor nml, Sensation nml, Mood/affect nml Reflexes: Bicep (R): 3+, Bicep (L): 3+ - Lab Results Fish Bones: 09/23/18 04:45 09/23/18 04:45 Other Labs: Lab Results x24hrs 09/23/18 09/23/18 09/23/18 Range/Units 04:45 04:45 00:15 WBC 6.9 (4.8-10.8) x10^3/uL RBC 3.12 L (4.20-5.40) 10^6/uL Hgb 9.4 L (12.0-16.0) g/dL Hct 27.7 L (37.0-47.0) % MCV 88.8 (81.0-99.0) fL MCH 30.1 (27.0-31.0) pg MCHC 33.9 (32.0-36.0) g/dL RDW 11.9 L (12.0-15.0) % Plt Count 209 (130-450) 10^3/uL MPV 9.4 (7.9-10.8) fL Neut # (Auto) 4.8 (1.5-6.6) 10^3/uL Lymph # (Auto) 1.4 L (1.5-3.5) 10^3/uL [place] # (Auto) 0.5 (0.0-1.0) 10^3/uL Eos # (Auto) 0.1 (0.0-0.7) 10^3/uL Baso # (Auto) 0.0 (0.0-0.1) 10^3/uL Absolute Nucleated RBC 0.00 x10^3/uL Nucleated RBC % 0.0 /100WBC Sodium 124 L 121 L (135-145) mmol/L Potassium 4.5 4.5 (3.5-5.0) mmol/L Chloride 95 L 92 L (101-111) mmol/L Carbon Dioxide 20 L 20 L (21-32) mmol/L Anion Gap 9.0 9.0 (6-13) BUN 25 H 28 H (6-20) mg/dL Creatinine 1.3 H 1.5 H (0.4-1.0) mg/dL Estimated GFR (MDRD) 40 L 34 L (>89) Glucose 105 H 101 H (70-100) mg/dL Glycated Hemoglobin (4.6-6.2) % Estim Average Glucose (70-100) Calcium 8.4 L 8.2 L (8.5-10.3) mg/dL Magnesium 1.7 (1.7-2.8) mg/dL Total Bilirubin 0.5 (0.2-1.0) mg/dL GGT (8-38) IU/L AST 34 (10-42) IU/L ALT 28 (10-60) IU/L Alkaline Phosphatase 52 (42-121) IU/L Total Protein 6.2 L (6.7-8.2) g/dL Albumin 3.3 (3.2-5.5) g/dL Globulin 2.9 (2.1-4.2) g/dL Albumin/Globulin Ratio 1.1 (1.0-2.2) TSH (0.34-5.60) uIU/mL Urine Color Urine Clarity (CLEAR) Urine pH (5.0-7.5) PH Ur Specific [place] (1.002-1.030) Urine Protein (NEGATIVE) mg/dL Urine Glucose (UA) (NEGATIVE) mg/dL Urine Ketones (NEGATIVE) mg/dL Urine Occult Blood (NEGATIVE) Urine Nitrite (NEGATIVE) Urine Bilirubin (NEGATIVE) Urine Urobilinogen (NORMAL) E.U./dL Ur Leukocyte Esterase (NEGATIVE) Urine RBC (0-5) /HPF Urine WBC (0-5) /HPF Ur Squamous Epith Cells (<= Few) Urine Bacteria (None Seen) /HPF Urine Casts /LPF Urine Culture Comments Ur Random Chloride mmol/L Urine Sodium mmol/L 09/22/18 09/22/1809/22/19 Range/Units 17:57 17:57 10:55 WBC (4.8-10.8) x10^3/uL RBC (4.20-5.40) 10^6/uL Hgb (12.0-16.0) g/dL Hct (37.0-47.0) % MCV (81.0-99.0) fL MCH (27.0-31.0) pg MCHC (32.0-36.0) g/dL RDW (12.0-15.0) % Plt Count (130-450) 10^3/uL MPV (7.9-10.8) fL Neut # (Auto) (1.5-6.6) 10^3/uL Lymph # (Auto) (1.5-3.5) 10^3/uL [place] # (Auto) (0.0-1.0) 10^3/uL Eos # (Auto) (0.0-0.7) 10^3/uL Baso # (Auto) (0.0-0.1) 10^3/uL Absolute Nucleated RBC x10^3/uL Nucleated RBC % /100WBC Sodium 121 L (135-145) mmol/L Potassium 4.3 (3.5-5.0) mmol/L Chloride 88 L (101-111) mmol/L Carbon Dioxide 22 (21-32) mmol/L Anion Gap 11.0 (6-13) BUN 26 H (6-20) mg/dL Creatinine 1.5 H (0.4-1.0) mg/dL Estimated GFR (MDRD) 34 L (>89) Glucose 118 H (70-100) mg/dL Glycated Hemoglobin (4.6-6.2) % Estim Average Glucose (70-100) Calcium 8.4 L (8.5-10.3) mg/dL Magnesium (1.7-2.8) mg/dL Total Bilirubin (0.2-1.0) mg/dL GGT 13 (8-38) IU/L AST (10-42) IU/L ALT (10-60) IU/L Alkaline Phosphatase (42-121) IU/L Total Protein (6.7-8.2) g/dL Albumin (3.2-5.5) g/dL Globulin (2.1-4.2) g/dL Albumin/Globulin Ratio (1.0-2.2) TSH (0.34-5.60) uIU/mL Urine Color Urine Clarity (CLEAR) Urine pH (5.0-7.5) PH Ur Specific [place] (1.002-1.030) Urine Protein (NEGATIVE) mg/dL Urine Glucose (UA) (NEGATIVE) mg/dL Urine Ketones (NEGATIVE) mg/dL Urine Occult Blood (NEGATIVE) Urine Nitrite (NEGATIVE) Urine Bilirubin (NEGATIVE) Urine Urobilinogen (NORMAL) E.U./dL Ur Leukocyte Esterase (NEGATIVE) Urine RBC (0-5) /HPF Urine WBC (0-5) /HPF Ur Squamous Epith Cells (<= Few) Urine Bacteria (None Seen) /HPF Urine Casts /LPF Urine Culture Comments Ur Random Chloride 58 mmol/L Urine Sodium 41.0 mmol/L 09/22/18 09/22/18 09/22/18 Range/Units 10:55 08:50 08:50 WBC (4.8-10.8) x10^3/uL RBC (4.20-5.40) 10^6/uL Hgb (12.0-16.0) g/dL Hct (37.0-47.0) % MCV (81.0-99.0) fL MCH (27.0-31.0) pg MCHC (32.0-36.0) g/dL RDW (12.0-15.0) % Plt Count (130-450) 10^3/uL MPV (7.9-10.8) fL Neut # (Auto) (1.5-6.6) 10^3/uL Lymph # (Auto) (1.5-3.5) 10^3/uL [place] # (Auto) (0.0-1.0) 10^3/uL Eos # (Auto) (0.0-0.7) 10^3/uL Baso # (Auto) (0.0-0.1) 10^3/uL Absolute Nucleated RBC x10^3/uL Nucleated RBC % /100WBC Sodium (135-145) mmol/L Potassium (3.5-5.0) mmol/L Chloride (101-111) mmol/L Carbon Dioxide (21-32) mmol/L Anion Gap (6-13) BUN (6-20) mg/dL Creatinine (0.4-1.0) mg/dL Estimated GFR (MDRD) (>89) Glucose (70-100) mg/dL Glycated Hemoglobin 5.9 (4.6-6.2) % Estim Average Glucose 123 H (70-100) Calcium (8.5-10.3) mg/dL Magnesium (1.7-2.8) mg/dL Total Bilirubin (0.2-1.0) mg/dL GGT (8-38) IU/L AST (10-42) IU/L ALT (10-60) IU/L Alkaline Phosphatase (42-121) IU/L Total Protein (6.7-8.2) g/dL Albumin (3.2-5.5) g/dL Globulin (2.1-4.2) g/dL Albumin/Globulin Ratio (1.0-2.2) TSH 2.93 (0.34-5.60) uIU/mL Urine Color YELLOW Urine Clarity CLEAR (CLEAR) Urine pH 6.0 (5.0-7.5) PH Ur Specific [place] 1.010 (1.002-1.030) Urine Protein NEGATIVE (NEGATIVE) mg/dL Urine Glucose (UA) NEGATIVE (NEGATIVE) mg/dL Urine Ketones NEGATIVE (NEGATIVE) mg/dL Urine Occult Blood NEGATIVE (NEGATIVE) Urine Nitrite NEGATIVE (NEGATIVE) Urine Bilirubin NEGATIVE (NEGATIVE) Urine Urobilinogen 0.2 (NORMAL) (NORMAL) E.U./dL Ur Leukocyte Esterase NEGATIVE (NEGATIVE) Urine RBC None Seen (0-5) /HPF Urine WBC 0-3 (0-5) /HPF Ur Squamous Epith Cells NONE SEEN (<= Few) Urine Bacteria Rare (None Seen) /HPF Urine Casts 0-2 Hyaline Casts /LPF Urine Culture Comments NOT INDICATED Ur Random Chloride mmol/L Urine Sodium mmol/L ABX Reporting Has patient been on IV antibiotics over the past 48 hours?: No Assessment/Plan - Problem List (1) Acute hyponatremia Impression: - Admitting serum sodium was 118 (gradual, severe), now improved to 124 - No changes in mental status, seizures, or other worrisome physical exam findings indicating acute, severe electrolyte imbalance - For the past 6 days (prior to admission), patient complained of; weakness, dizziness, loss of appetite, weight gain, and nausea - Urine sodium was 42 - Recent medication changes of adding doxazosin, in addition to remaining on full dose JUANCHO, hydrochlorothiazide - Likely diuretic induced hyponatremia - NO home meds have been resumed and will be discontinued in light of treating her HTN based on echocardiogram from today Plan: Continue gentle replacement with normal saline at 100 mL/hour, hold all B/P meds, start diltiazem when appropriate (2) Pulmonary hypertension, moderate to severe Impression: - Preliminary results from today show an elevated RVSP at rest of 61 mmHg - Patient denies prior history of sleep apnea, but her notes that she tends to stop her breathing at night and is an easy snorer - Also denies any history of lung cancer, pulmonary emboli as a possible culprit - Long standing COPD with appropriate use of inhalers at home - Recommend a sleep study in the near future which will need to be ordered by her PCP - Start Spironolactone when appropriate Plan: Continue to monitor respiratory state, continue RT treatments (3) Grade II diastolic dysfunction Impression: - Preliminary echocardiogram shows mild concentric LV hypertrophy, and an EF of 65-70% with mild to moderate increase in the left atrial volume index - This abnormality may be due to longstanding under treated HTN, advanced age and pulmonary HTN (possible IRASEMA) Plan: Continue to monitor vital signs, start diltiazem when appropriate (4) Hypertension Impression: - Patient reported systolic B/P readings ~250 at her most recent clinic visit - Longstanding HTN, with CAD - At one time was seeing a home care music therapist (Tiffanie) for her CAD, denies ID or CVA- prescribed Plavix at home per cardiology - In reviewing past medical history, patient also has a history of stenting of her BLEs for PVD which would explain her chronic Plavix - Faint systolic heart murmur appreciated on exam in the mitral region - Echo results today show LVH, diastolic dysfunction, severe pulmonary hypertension, and mild mitral and tricuspid regurg Plan: Continue to hold all home meds, treat HTN with diltiazem when blood pressures improve, then add spironolactone for further control and to treat her pulmonary hypertension Qualifiers: Hypertension type: essential hypertension Qualified Code(s): I10 - Essential (primary) hypertension (5) Asthma with COPD (chronic obstructive pulmonary disease) Impression: - Patient admits to smoking from age [age] and had underlying asthma - Takes budesinide at home - Preliminary echo from today shows severe pulmonary HTN, suggest a sleep study in the near future Plan: Budesinide INH, duo-nebs as needed (6) CAD (coronary artery disease) Impression: - Takes Pravastatin at home - Also with PVD requiring stents to BLEs for re-vascularization Plan: Continue home meds (7) PVD (peripheral vascular disease) Impression: - Old charts indicated that the patient has had stenting of her right leg, and bypass surgery in her left leg - On chronic Plavix at home, which continues here - No peripheral edema on exam, warm with + pulses to BLEs Plan: Continue medication, not a candidate for aspirin (8) Nocturia Impression: - Patient reports at least 3-4 times per night of nocturia that has become worse in the past few months since having more problems with her B/P - HCTZ at home, now on hold - Patient reports that she continued to have nocturia despite holding her home meds - May be due to advanced age, lack of muscle tone in the absence of estrogen - UA was negative Plan: Offer purewick for comfort while inpatient, minimize diuretics
[2018-09-23 19:30] LABS: CALCIUM 8.5 mg/dL (8.5-10.3); CREATININE 1.5 mg/dL (0.4-1.0)
[2018-09-23] MEDS ORDERED: ASPIRIN CHEW 81 MG TABLET PO STA (22:41)
--- NOTE | 2018-09-23 22:45 | XRAY Report ---
Reason: Dyspnea Procedure Date: 09/23/2018 Accession Number: [id number] / [id number] Procedure: XR - Chest 1 View X-Ray CPT Code: 80647 FULL RESULT: EXAM: CHEST RADIOGRAPHY EXAM DATE: 09/23/2018 10:03 PM. CLINICAL HISTORY: Dyspnea. COMPARISON: CHEST 2 VIEW 07/05/2017 12:25 PM. TECHNIQUE: 1 view. FINDINGS: Lungs/Pleura: Hyperexpansion with flattened diaphragm typical for COPD. Mild diffuse increased haziness of lung markings with numerous septal lines. Small pleural effusions. No consolidation or pneumothorax. Mediastinum: Normal overall heart size, but slightly increased since previous exam, with diffuse vascular fullness and cephalic redistribution. Other: Osteopenia, degenerative changes. IMPRESSION: Congestive failure in a patient with underlying COPD. RADIA
[2018-09-23 22:52] LABS: TROPONIN I 0.32 ng/mL (<0.49)
[2018-09-23] MEDS ORDERED: NITROGLYCERIN SL 0.4 MG TABLET SL SCH (23:00)
[2018-09-23] MEDS ORDERED: FUROSEMIDE 40 MG/4 ML VIAL IVP SCH (23:45)
[2018-09-24 05:39] LABS: BASOPHILS % (AUTO) 0.2 %; EOSINOPHILS % (AUTO) 0.2 %; HGB - HEMOGLOBIN 9.3 g/dL (12.0-16.0); LYMPHOCYTES % (AUTO) 9.9 %; MEAN CORPUSCULAR HEMOGLOBIN 29.8 pg (27.0-31.0); MEAN CORPUSCULAR HGB CONC 33.5 g/dL (32.0-36.0); MEAN CORPUSCULAR VOLUME 89.1 fL (81.0-99.0); MEAN PLATELET VOLUME 9.9 fL (7.9-10.8); MONOCYTES # (AUTO) 0.6 10^3/uL (0.0-1.0); MONOCYTES % (AUTO) 6.1 %; NEUTROPHILS # (AUTO) 8.6 10^3/uL (1.5-6.6); NEUTROPHILS % (AUTO) 83.2 %; PLT - PLATELET COUNT 231 10^3/uL (130-450); RED BLOOD COUNT 3.12 10^6/uL (4.20-5.40); RED CELL DISTRIBUTION WIDTH 12.8 % (12.0-15.0); WHITE BLOOD COUNT 10.4 x10^3/uL (4.8-10.8)
[2018-09-24 06:10] LABS: ALBUMIN 3.4 g/dL (3.2-5.5); ALBUMIN/GLOBULIN RATIO 1.2 (1.0-2.2); BILIRUBIN,TOTAL 0.4 mg/dL (0.2-1.0); CALCIUM 8.7 mg/dL (8.5-10.3); CREATININE 1.4 mg/dL (0.4-1.0); MAGNESIUM 1.9 mg/dL (1.7-2.8); TOTAL PROTEIN 6.2 g/dL (6.7-8.2)
[2018-09-24 06:12] LABS: TROPONIN I 3.64 ng/mL (<0.49)
[2018-09-24] MEDS ORDERED: HEPARIN 5,000 UNIT/ML VIAL IVP ONE (06:19)
[2018-09-24] MEDS ORDERED: HEPARIN 25000UNITS/500ML (D5W) 25,000 UNIT/500 ML BAG IV STA ×2 (06:20→06:36)
[2018-09-24 06:56] LABS: HGB - HEMOGLOBIN 10.2 g/dL (12.0-16.0); MEAN CORPUSCULAR HEMOGLOBIN 30.2 pg (27.0-31.0); MEAN CORPUSCULAR HGB CONC 33.9 g/dL (32.0-36.0); MEAN CORPUSCULAR VOLUME 89.1 fL (81.0-99.0); MEAN PLATELET VOLUME 9.6 fL (7.9-10.8); RED BLOOD COUNT 3.38 10^6/uL (4.20-5.40); RED CELL DISTRIBUTION WIDTH 12.6 % (12.0-15.0); WHITE BLOOD COUNT 11.8 x10^3/uL (4.8-10.8)
[2018-09-24] MEDS ORDERED: METOPROLOL TARTRATE 25 MG TABLET PO SCH (07:00)
[2018-09-24] MEDS: ALBUTEROL NEB 2.5 MG/3 ML INH PRN (07:30)
[2018-09-24] MEDS: BUDESONIDE 0.5 MG/2 ML NEB INH SCH (07:30)
[2018-09-24] MEDS ORDERED: LEVALBUTEROL 1.25 MG/3 ML NEB INH PRN (07:54)
[2018-09-24] MEDS: CLOPIDOGREL 75 MG TABLET PO SCH (08:02)
[2018-09-24] MEDS: MAGNESIUM OXIDE 400 MG TABLET PO SCH (08:02)
[2018-09-24] MEDS: POLYETHYLENE GLYCOL 3350 17 GM PACKET PO SCH (08:03)
[2018-09-24] MEDS: SODIUM CHLORIDE FLUSH 0.9% 10 ML SYRINGE IVP SCH (08:03)
--- NOTE | 2018-09-24 08:18 | Discharge Plan ---
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 Call for help. Follow-up with: Caitlin Parks MD [Primary Care Provider] -
--- NOTE | 2018-09-24 08:32 | DISCHARGE SUMMARY ---
Discharge Summary Admit Date: 09/22/18 Discharge Date: 09/24/18 Discharging Provider: ARASH Delgado Primary Care Provider: Caitlin Parks Code Status: Do Not Attempt Resuscitation Condition at Discharge: Stable Discharge Disposition: 02 Transfer Acute Care Hosp Discharge Facility Name: [facility]/ Geo Sands MD (cardiology) - DIAGNOSES Admission Diagnoses: Acute hyponatremia Hypertension Asthma with COPD Tobacco dependence in remission CAD (coronary artery disease) Nocturia History of irregular heartbeat Discharge Diagnoses with Status of Each Condition: NSTEMI- new on this admission, troponin peak max of 3.64, continues on a heparin gtt, oxygen per nasal cannula, started on metoprolol, continues on home Plavix and NTG SL as needed New onset angina- described as left mid-sternal with radiation to left arm noted to be a sore sensation, no recurrence since first episode last evening ( 09/23/2018) @ 2150 Acute hyponatremia- resolved, last sodium was 130 Moderate to severe pulmonary hypertension- noted on an echo from 09/23, RVSP of 61 mmHg, suggest sleep study at a later date and Spironolactone if indicated after cardiac procedures at [facility] Grade II diastolic dysfunction- Noted on echo from 09/23, most appropriate treatment is with rate control medications. Previous home meds for blood pressure control are not recommended after this finding Hypertension- Previously on HTCZ, doxazosin, lisinopril and norvasc, now all discontinued. Should be treated as per cardiology after cardiac procedures (rate control, possibly with Spironolactone for pulmonary HTN after IRASEMA is ruled out) Asthma with COPD- Continues on home inhalers, stable and chronic CAD (coronary artery disease)- long history, likely exacerbated by tobacco dependence from age [age], now in remission. 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 Afrin spray is now recommended for 6 doses (3 days), to be continued at [facility]. - HPI History of Present Illness: Marcia Aguilar is a 78-year old female with a past medical history of hypertension, hyperlipidemia, PVD, COPD emphysema, GERD, nocturia, and eczema. She arrived in the ED via private car with complaints of nausea, weakness, and dizziness that started 5-6 days ago after addition of doxazosin to her other medications, which include lisinopril, amlodipine, and hydrochlorothiazide. She reported that her blood pressure while in the clinic had been elevated up to 250 systolic prompting the addition of doxazosin by her PCP. She reported that she "just felt lousy" ever since starting her new medication, has gained weight gradually (estimated 0.5 lbs per day), had no appetite, was nauseated, dizzy with standing, and had noticed her nocturia had become worse in which she has been getting up 4-5 times per night to urinate. On her initial exam, she denied vomiting, diarrhea, headaches, sore throat, recent illness, a new rash, shortness of breath, or chest pain. Labs showed a normal WBC count, H/H of 10.8/30.5, platelets 228, sodium 118, potassium of 4.2, chloride 84, anion gap 14.0, creatinine 1.4, BUN 20, GFR 36, glucose 124, magnesium 1.5, normal troponin of 0.04, lipase 82 with no other lab abnormalities. A urine sodium was 41, a urine chloride was 58, and a urinalysis shows no acute infection. She is alert and oriented x4, a good historian, and is agreeable to at least a 2 midnig inpatient stay in the hospital. - HOSPITAL COURSE Hospital Course: The patient was admitted for acute/severe hyponatremia with a low serum sodium of 118 on 09/22/2018 likely due to her hydrochlorathiazide medication. She had no altered mental status, but complained of dizziness, weakness and nausea that started after seeing her PCP who prescribed doxazosin. After being treated with normal saline @ 100mL per hour, her hyponatremia has resolved to a sodium of 130 this AM. On 09/23/2018 ~1800 her IV fluids were capped for expiratory wheezing, and increased shortness of breath with ambulation. At around 2150 the patient developed chest pain, chest pressure and worsening shortness of breath. The patient states that her associated symptoms at the time of this chest pain were; increased anxiety, clammy skin, mild diaphoresis, mild nausea, and her pain was predominantly in her left mid-sternal chest with radiation to her whole left arm which she described as a ache. She was given a sublingual nitroglycerin, IV lasix which resolved her symptoms. A chest x-ray showed CHF, without any infiltrates. A one time dose of lasix IV of 40mg was given on 09/23/2018 and repeated this AM. An EKG showed ST depression, similar to prior EKGs, and a troponin was elevated from 0.04 to 0.34, and this morning to 3.64. High sensitivity troponins went from 313 to 3253 this morning. The patient has a baseline creatinine ~ 1.3, and this morning it is 1.4. The patient has had a resolution of her chest pain at the time of transfer, but remains slightly short of breath which has improved with nebulizer treatments. She is currently on a heparin gtt, has been given metoprolol, remains on her home Plavix, and ASA. - ALLERGIES Allergies/Adverse Reactions: Allergies Allergy/AdvReac Type Severity Reaction Status Date / Time No Known Drug Allergies Allergy Verified 10/30/15 09:31 - MEDICATIONS Home Medications: Ambulatory Orders Medication Instructions Recorded Confirmed Multivitamin [Multi-Vitamin Daily] 1 tab ORAL DAILY 10/20/13 09/22/18 [place]-3 Fatty Acids [Fish Oil] 1,000 mg PO DAILY 10/20/13 09/22/18 Pravastatin Sodium 40 mg PO QPM 10/20/13 09/22/18 Clopidogrel [Plavix] 75 mg PO DAILY 10/15/15 09/22/18 Budesonide 1 puffs INH BID 09/22/18 09/22/18 Levalbuterol [Xopenex] 1.25 mg INH RTQ4H PRN neb 09/24/18 Magnesium Oxide [Mag Ox] 400 mg PO BIDWM tablet 09/24/18 Metoprolol Tartrate [Lopressor] 25 mg PO BID tablet 09/24/18 Nitroglycerin 0.4 mg SL Q15M PRN #30 tab.subl 09/24/18 Oxymetazoline HCl [Afrin] 15 ml NS BID #1 bottle 09/24/18 Polyethylene Glycol 3350 [Miralax] 17 gm PO DAILY packet 09/24/18 - PHYSICAL EXAM AT DISCHARGE General Appearance: positive: Alert, Mild distress, Anxious Eyes Bilateral: positive: PERRL ENT: positive: Pharynx nml, Dry mucous membranes Neck: positive: Thyroid nml, No JVD Respiratory: positive: Chest non-tender, Wheezes, Other (diminished bilaterally) Cardiovascular: positive: No gallop, Irregularly irregular, Tachycardia, Systolic murmur, Decreased pulse(s) Peripheral Pulses: positive: 1+ Abdomen: positive: Non-tender, Nml bowel sounds Back: positive: Nml inspection Skin: positive: Color nml, No rash, Warm, Dry Extremities: positive: Non-tender, Full ROM, Pedal edema (trace to BLEs) Neurologic/Psychiatric: positive: Oriented x3, CN's nml (2-12), Motor nml, Sensation nml, Mood/affect nml Reflexes: Bicep (R): 3+, Bicep (L): 3+ - LABS Result Diagrams: 09/24/18 06:45 09/24/18 04:50 - DIAGNOSTIC IMAGING Diagnostic Imaging Results: Prelim report reviewed, Final report reviewed Diagnostic Imaging Results Comments: EXAM: CHEST RADIOGRAPHY EXAM DATE: 09/23/2018 10:03 PM IMPRESSION: Congestive failure in a patient with underlying COPD. Preliminary ECHO (prior to chest pain): 09/23/2018 Grade 2 diastolic dysfunction, mild concentric LVH, EF 65-70%, moderate to severe pulmonary HTN with an RVSP at rest of 61 mmHg, mild mitral and tricuspid regurg, mild increase in the LA volume index, no wall motion abnormalities, no mass or thrombus, no pleural effusion. Renal artery US ordered for ongoing HTN 09/24/2018: IMPRESSION: 1. Less than 60% stenosis origin right main renal artery. 2. No nvisualization origin left main renal artery. 3. Elevated right kidney segmental artery resistive indices consistent with moderate renovascular insufficiency. 4. Echogenic kidneys consistent with chronic medical renal disease. - FOLLOW UP Follow Up: Disposition: Transfer Acute Care [facility] under the care of Geo Sands MD (cardiology) Condition: Stable Prescriptions: Nitroglycerin 0.4 mg SL Q15M PRN #30 tab.subl PRN Reason: Chest Pain Diet: Regular Health Concerns: NSTEMI hyponatremia COPD PVD Plan of Treatment: Transfer to a higher level of care for a possible cardiac catheterization Care Goals: Prevent worsening of heart failure, Prevent hospital stays/ED visit s, Treat COPD with long-term medications Assessment: Patient is agreeable to a transfer to [facility] to get specialized Cardiac care Additional Instructions or Follow Up instructions: A sleep study should be ordered at a later date by PCP to evaluate (rule out) IRASEMA given her pulmonary HTN. A cardiac rehab referral has been made through [facility] Follow-Up Care: [facility] - Cardiac - TIME SPENT Time Spent in Discharge (Minutes): 60
--- NOTE | 2018-09-24 12:44 | Ultrasound Report ---
Reason: Poorly controlled hypertension Procedure Date: 09/24/2018 Accession Number: [id number] / [id number] Procedure: US - Arterial Visceral Complete CPT Code: FULL RESULT: EXAM: RENAL ARTERY DOPPLER ULTRASOUND EXAM DATE: 09/24/2018 09:30 AM. CLINICAL HISTORY: Poorly controlled hypertension. COMPARISON: None. TECHNIQUE: Real-time sonographic vascular imaging was performed by the transportation museum helper through the renal arterial system with a linear transducer utilizing color-flow, Doppler flow, and spectral analysis. Multiple physician relations representative static images were saved for review. FINDINGS: Right Kidney: 9.2 x 4.8 x 4.9 cm. Echotexture: Echogenic. Right Segmental Artery: Upper pole: PSV 58.6 cm/sec, RI 0.79. Mid pole: PSV 58.8 cm/sec, RI 0.75. Lower pole: PSV 59.4 cm/sec, RI 0.74. Right Renal Artery: Origin #1: PSV 56.4 cm/sec, RA/AO 0.3. Origin #2: PSV 177 cm/sec, RA/AO 0.9. Proximal #1: PSV 0 cm/sec, RA/AO 0. Proximal #2: PSV 74.4 cm/sec, RA/AO 0.4. Mid #1: PSV 71.4 cm/sec, RA/AO 0.4. Mid #2: PSV 105.2 cm/sec, RA/AO 0.6. Distal #1: PSV 84.5 cm/sec, RA/AO 0.5. Distal #2: PSV 63.4 cm/sec, RA/AO 0.3. Aorta PSV: 184 cm/sec. RRV Patent: Yes. Left Kidney: 8.9 x 3.6 x 4.5 cm. Echotexture: Diffusely echogenic. Left Segmental Artery: Upper pole: PSV 35.8 cm/sec, RI 0.61. Mid pole: PSV 18 cm/sec, RI 0.64. Lower pole: PSV 49.7 cm/sec, RI 0.67. Left Renal Artery: Origin: Not seen. Proximal: PSV 28.5 cm/sec, RA/AO 0.15. Mid: PSV 34.6 cm/sec, RA/AO 0.18. Distal: PSV 27.6 cm/sec, RA/AO 0.15. LRV Patent: Yes. IMPRESSION: 1. Less than 60% stenosis origin right main renal artery. 2. Nonvisualization origin left main renal artery. 3. Elevated right kidney segmental artery resistive indices consistent with moderate renovascular insufficiency. 4. Echogenic kidneys consistent with chronic medical renal disease. CRITERIA FOR CLASSIFICATION OF RENAL ARTERY (RA) DISEASE BY DUPLEX SCANNING: RA Diameter Reduction/ RA PSV/ RAR: Normal, < 180 cm/sec, < 3.5 < 60%, >= 180 cm/sec, < 3.5 >= 60%, >= 180 cm/sec, >= 3.5 Total Occlusion: Undetectable; Not applicable RADIA
[2018-09-24] MEDS ORDERED: SODIUM CHLORIDE 0.65% NASAL SPRAY NAS PRN (13:39)
[2018-09-24] MEDS ORDERED: OXYMETAZOLINE HCL 100 SPRAYS BOTTLE NAS SCH (14:00)
[2018-09-24 15:45] VITALS: BP 181/56
== END 2018-09-24 16:35 | disposition short-term general hospital (02) | DRG 640 ==
LOC: ED 08:08 → SUATTDRO 08:08 → MS2 09:32
PROVIDERS: ADMIT Nurse Practitioner; ATTEND Nurse Practitioner
DX: E87.1 Hypo-osmolality and hyponatremia (principal); I10 Essential (primary) hypertension; I21.4 Non-ST elevation (NSTEMI) myocardial infarction; R04.2 Hemoptysis; I13.0 Hypertensive heart and chronic kidney disease with heart failure and stage 1 through stage 4 chronic kidney disease, or unspecified chronic kidney disease; I50.9 Heart failure, unspecified; I27.23 Pulmonary hypertension due to lung diseases and hypoxia; J43.9 Emphysema, unspecified; J45.909 Unspecified asthma, uncomplicated; T50.2X5A Adverse effect of carbonic-anhydrase inhibitors, benzothiadiazides and other diuretics, initial encounter; K21.9 Gastro-esophageal reflux disease without esophagitis; G47.33 Obstructive sleep apnea (adult) (pediatric); I25.119 Atherosclerotic heart disease of native coronary artery with unspecified angina pectoris; I70.1 Atherosclerosis of renal artery; I08.1 Rheumatic disorders of both mitral and tricuspid valves; F17.201 Nicotine dependence, unspecified, in remission; N18.9 Chronic kidney disease, unspecified; E78.5 Hyperlipidemia, unspecified; I73.9 Peripheral vascular disease, unspecified; F32.9 Major depressive disorder, single episode, unspecified; J32.9 Chronic sinusitis, unspecified; L30.9 Dermatitis, unspecified; R35.1 Nocturia; R39.15 Urgency of urination; R35.0 Frequency of micturition; H54.7 Unspecified visual loss; Z66 Do not resuscitate; Z96.1 Presence of intraocular lens; Z79.02 Long term (current) use of antithrombotics/antiplatelets; Z79.51 Long term (current) use of inhaled steroids; Z79.52 Long term (current) use of systemic steroids; Z79.899 Other long term (current) drug therapy; Z82.49 Family history of ischemic heart disease and other diseases of the circulatory system; Z98.42 Cataract extraction status, left eye; Z95.828 Presence of other vascular implants and grafts; Z98.41 Cataract extraction status, right eye
CPT/HCPCS: 36415; 71045; 80048; 80053; 81001; 82977; 83036; 83690; 83735; 83880; 83930; 84300; 84443; 84484; 85025; 85027; 85520; 93005; 93306; 93975; 94640; 96374; 99285; A9270; J7626; 87086